=== PATIENT | female | born 1975 | race Asian ===

== ENCOUNTER 2020-09-08 22:44 | Emergency (ER) | payer OTHER, SELFPAY ==
--- NOTE | 2020-09-08 22:58 | DI.RAD.S_ITS ---
PROCEDURE: XR CHEST 1V INDICATIONS: chest pain TECHNIQUE: One view of the chest was acquired. COMPARISON: None. FINDINGS: Surgical changes and devices: None. Lungs and pleura: Lungs are clear. No pleural effusions or pneumothorax. Mediastinum: Mediastinal contours appear normal. Heart size is normal. Bones and chest wall: No suspicious bony lesions. Overlying soft tissues appear unremarkable. IMPRESSION: Normal single-view chest. Note: No significant discrepancy from the preliminary report. Dictated by: Reji Sauer M.D. on 09/09/2020 at 6:25 Approved by: Reji Sauer M.D. on 09/09/2020 at 6:26
[2020-09-08 23:00] VITALS: BP 226/127; PULSE 87; RESP 16; TEMP 36.9; O2SAT 100; BMI 25.3
[2020-09-08 23:08] VITALS: PULSE 72; RESP 19; O2SAT 99
[2020-09-08 23:09] VITALS: BP 212/115; PULSE 77; RESP 17; O2SAT 100
[2020-09-08 23:19] LABS: Add Manual Diff / Slide Review NO; Basophils Absolute Auto 100 /uL (0-100); Basophils Percent Auto 1.3 % (0-2); Eosinophils Absolute Auto 200 /uL (0-450); Eosinophils Percent Auto 2.6 % (2-4); Hematocrit 40.3 % (36-46); Hemoglobin 13.8 g/dL (12.0-16.0); Lymphocytes Absolute Auto 2200 /uL (1100-4500); Lymphocytes Percent Auto 32.1 % (25-40); Mean Corpuscular HGB Conc 34.2 % (30-36); Mean Corpuscular Hemoglobin 27.8 PG (26-34); Mean Corpuscular Volume 81.1 fL (80-100); Monocytes Absolute Auto 500 /uL (0-900); Monocytes Percent Auto 7.6 % (3-14); Neutrophils Absolute Auto 3900 /uL (1500-7000); Neutrophils Percent Auto 56.4 % (50-75); Platelet Count 307 X10^3/uL (150-400); Red Blood Cell Count 4.98 X10^6/uL (4.0-5.2); Red Cell Distribution Width 13.4 % (11.6-14.8); White Blood Cell Count 6.8 X10^3/uL (4.5-11.0)
[2020-09-08 23:28] LABS: Alanine Aminotransferase 23 IU/L (<35); Albumin 4.8 g/dL (3.5-5.0); Albumin Globulin Ratio 1.3 (1.0-2.8); Alkaline Phosphatase 87 U/L (38-126); Aspartate Aminotransferase 25 IU/L (14-36); BUN Creatinine Ratio 25.8 (6-22); Bilirubin Total 0.4 mg/dL (0.2-1.3); Blood Urea Nitrogen 17 mg/dL (7-17); Calcium 9.9 mg/dL (8.4-10.2); Carbon Dioxide 25 mmol/L (22-32); Chloride 106 mmol/L (98-107); Creatine Kinase 48 U/L (30-135); Estimated Glomerular Filt Rate > 60.0 mL/min (>60); Globulin 3.8 g/dL (1.7-4.1); Glucose 113 mg/dL (70-100); HEMOLYSIS < 15 (0-50); Lipase 109 U/L (23-300); Potassium 3.9 mmol/L (3.4-5.1); Sodium 141 mmol/L (137-145); Total Protein 8.6 g/dL (6.3-8.2)
[2020-09-08 23:30] VITALS: BP 198/89; PULSE 69; RESP 16; O2SAT 98
[2020-09-08 23:39] LABS: Troponin I < 0.012 ng/mL (0.01-0.034)
[2020-09-09] VITALS: PULSE 86; RESP 30; O2SAT 99
--- NOTE | 2020-09-09 00:03 | ED_ITS ---
HPI - General Adult General Chief complaint: Hypertension Stated complaint: high BP, chest pressure Time Seen by Provider: 09/08/20 23:45 Source: patient Mode of arrival: Ambulatory Limitations: no limitations History of Present Illness HPI narrative: 44-year-old female here for evaluation of high blood pressure and chest pressure. She does have a history of high blood pressure. She is on blood pressure medication and also has clonidine given to her by her primary doctor to take for blood pressure is elevated. Over the past couple days she has been taking her medications as directed. She has been taking her blood pressure at home and has been extremely elevated. She knows when her blood pressure is elevated because she does get some chest tightness which she has today. No headache. She then becomes very anxious about her blood pressure her which she understands make her blood pressure worse. No lower extremity swelling. Related Data Previous Rx's Medication Instructions Recorded lorazepam 0.5 mg tablet (Ativan) 0.5 mg PO BID PRN #10 tab 09/09/20 Allergies Allergy/AdvReac Type Severity Reaction Status Date / Time hydralazine Allergy Palpitation Verified 09/08/20 23:00 s Review of Systems Constitutional Constitutional: Denies chills, Denies fever(s) and Denies headache(s) ENT Ears, Nose, Mouth, and Throat: Denies headache(s) Cardiovascular Comments: Chest pressure Respiratory Comments: No shortness of breath Gastrointestinal Comments: No nausea vomiting Musculoskeletal Comments: No lower extremity swelling Integumentary/Breasts Comments: No rashes Neurologic Neurologic: Denies headache(s) Hematologic/Lymphatic On Anticoagulants: No Allergic/Immunologic Allergic/Immunologic: Reports system reviewed and no additional complaints, exc ept as documented Patient History Medical History Hypertension Social History Smoking Status: Never smoker Smoking Status: Never smoker alcohol intake frequency: holidays/special occasions only Substance Use Type: does not use Exam Initial Vital Signs Initial Vital Signs: Vital Signs Temperature 98.4 F 09/08/20 23:00 Pulse Rate 87 09/08/20 23:00 Respiratory Rate 16 09/08/20 23:00 Blood Pressure 226/127 H 09/08/20 23:00 Pulse Oximetry 100 09/08/20 23:00 Const General: cooperative and healthy appearing [facility] Head: normal to inspection and normocephalic Eyes General: appearance normal, both eyes and all related structures Resp Effort & Inspection: normal respiratory effort Auscultation: clear to auscultation bilaterally Cardio Rate: regular rate Rhythm: regular rhythm GI Inspection: normal to inspection Skin General: no rashes or lesions noted Neuro General: patient alert, patient awake and moves all extremities Extrem General: normal to inspection and capillary refill normal Psych Appearance: grossly normal and well kempt Course Orders Ordered: ED Orders 09/08/20 22:58 XR chest 1V Stat EKG-12 Lead Stat 09/08/20 23:05 Complete Blood Count AUTO DIFF Stat Comprehensive Metabolic Panel Stat Lipase Stat Troponin & CK Cardiac Panel Stat Discontinued Medications Lorazepam (Lorazepam 2 Mg/Ml Inj) 1 mg IV NOW ONE Stop: 09/09/20 00:04 Last Admin: 09/09/20 00:21 Dose: 1 mg Documented by: [email or web address] Vital Signs Vital signs: Vital Signs - 8 hr 09/08/20 23:00 09/08/20 23:08 09/08/20 23:09 Temperature 98.4 F Pulse Rate 87 72 77 Respiratory Rate 16 19 17 Blood Pressure 226/127 H 212/115 H Pulse Oximetry 100 99 100 09/08/20 23:30 09/09/20 00:00 09/09/20 00:22 Temperature Pulse Rate 69 86 65 Respiratory Rate 16 30 H 16 Blood Pressure 198/89 H 165/79 H Pulse Oximetry 98 99 99 09/09/20 00:30 Temperature Pulse Rate 61 Respiratory Rate 15 Blood Pressure 135/63 Pulse Oximetry 96 Medical Decision Making Lab Data Lab results reviewed: Yes I reviewed the patient's lab results. Result diagrams: 09/08/20 23:05 09/08/20 23:05 Labs: Lab Results 09/08/20 09/08/20 Range/Units 23:05 23:05 WBC 6.8 (4.5-11.0) X10^3/uL RBC 4.98 (4.0-5.2) X10^6/uL Hgb 13.8 (12.0-16.0) g/dL Hct 40.3 (36-46) % MCV 81.1 (80-100) fL MCH 27.8 (26-34) PG MCHC 34.2 (30-36) % RDW 13.4 (11.6-14.8) % Plt Count 307 (150-400) X10^3/uL Neut % (Auto) 56.4 (50-75) % Lymph % (Auto) 32.1 (25-40) % [place] % (Auto) 7.6 (3-14) % Eos % (Auto) 2.6 (2-4) % Baso % (Auto) 1.3 (0-2) % Neut # (Auto) 3900 (4279-9395) /uL Lymph # (Auto) 2200 (6974-1316) /uL [place] # (Auto) 500 (0-900) /uL Eos # (Auto) 200 (0-450) /uL Baso # (Auto) 100 (0-100) /uL Sodium 141 (137-145) mmol/L Potassium 3.9 (3.4-5.1) mmol/L Chloride 106 (98-107) mmol/L Carbon Dioxide 25 (22-32) mmol/L BUN 17 (7-17) mg/dL Creatinine 0.66 (0.52-1.04) mg/dL Estimated GFR > 60.0 (>60) mL/min BUN/Creatinine Ratio 25.8 H (6-22) Glucose 113 H (70-100) mg/dL Calcium 9.9 (8.4-10.2) mg/dL Total Bilirubin 0.4 (0.2-1.3) mg/dL AST 25 (14-36) IU/L ALT 23 (<35) IU/L Alkaline Phosphatase 87 (38-126) U/L Total Creatine Kinase 48 (30-135) U/L CK-MB (CK-2) TNP CK-MB (CK-2) Rel Index TNP Troponin I < 0.012 (0.01-0.034) ng/mL Total Protein 8.6 H (6.3-8.2) g/dL Albumin 4.8 (3.5-5.0) g/dL Globulin 3.8 (1.7-4.1) g/dL Albumin/Globulin Ratio 1.3 (1.0-2.8) Lipase 109 (23-300) U/L Imaging Data Chest x-ray: Radiologist's Impression: No acute cardiopulmonary pathology evident ECG Data Attestation: I personally reviewed and interpreted this ECG as follows: Interpretation: Sinus rhythm Ventricular rate is 73 Normal QRS Normal QTC No ST T wave changes Normal axis MDM Narrative Medical decision making narrative: Patient's blood pressure did improve somewhat without any intervention here in the ER. It improved tremendously after recei ving Ativan. Her chest pressure also improved. Troponin was negative. Had a long discussion with her regarding her blood pressure and how to take it at home. We did discuss her medications at home and when to return to the emergency department. Will send her home with short course of Ativan as this did seem to improve her symptoms quite a bit. I feel that we can discharge home without further workup. She was given return precautions. She expressed understanding and agreement. Discharge Plan Departure Patient Disposition: Home Clinical Impression: Hypertension Instructions: DI for High Blood Pressure Activity Restrictions/Additional Instructions: I recommend that you continue to take the lisinopril and clonidine as directed by your primary doctor. Use the anxiety medication that you were given a prescription for today as needed. Return to the emergency department for any ne w or worsening symptoms like we discussed. Prescriptions: New lorazepam [Ativan] 0.5 mg tablet 0.5 mg PO BID PRN (Reason: anxiety) Qty: 10 RF: 0
[2020-09-09] MEDS: LORazepam 2 MG/ML INJ 1 MG IV (00:21)
[2020-09-09 00:22] VITALS: BP 165/79; PULSE 65; RESP 16; O2SAT 99
[2020-09-09 00:30] VITALS: BP 135/63; PULSE 61; RESP 15; O2SAT 96
== END 2020-09-09 01:07 | disposition home or self-care (01) ==
PROVIDERS: Emergency Provider Emergency Medicine
DX: I10 Essential (primary) hypertension (principal); R07.9 Chest pain, unspecified
CPT/HCPCS: 36415; 71045; 80053; 82550; 83690; 84484; 85025; 93005; 96374; 99284; J2060